=== PATIENT | female | born 1990 | race Caucasian/White ===

== ENCOUNTER 2024-06-18 10:21 | Emergency (ER) | payer BC, SELFPAY ==
[2024-06-18 10:44] VITALS: BP 124/85; PULSE 76; RESP 18; TEMP 37.1; O2SAT 100
--- NOTE | 2024-06-18 10:50 | ED.EYEPROB ---
HPI - Eye Problem General Chief complaint: Eye Problems Stated complaint: spot above right eye Time Seen by Provider: 06/18/24 11:13 Source: patient Mode of arrival: ambulatory Limitations: no limitations History of Present Illness HPI Narrative: 34-year-old female presented for complaint of a red swollen area over the right inner eye. Says it started as a pimple about 8 weeks ago, but has continued to increase in size and reports pain. Denies drainage. Says she does not apply anything or attempt to pop it. Says the swelling is now under the eye. Denies vision changes, eye pain, foreign body sensation, discharge or headache. chief complaint: eye pain Review of Systems Review of Systems: CONSTITUTIONAL: Denies body aches, fever, chills EYES:Endorses swelling, redness and pain to medial upper eye; Denies visual changes, FB sensation, photophobia ENT: Denies rhinorrhea, congestion, sore throat, or otalgia. CARDIOVASCULAR: Denies chest pain, palpitations RESPIRATORY: Denies cough or dyspnea. MUSCULOSKELETAL: Denies back pain, joint pain, or myalgia. NEUROLOGIC: Denies headache, numbness, tingling, or weakness. All systems reviewed & are unremarkable except as noted in HPI and below PMFSH Comments At time of signature, I have reviewed and agree with nursing past medical, surgical, social and family history unless otherwise noted. Please see nursing chart for further information. There is no relevant family history pertinent to the presenting complaint Exam Narrative: GENERAL: Well-appearing HEAD: Normocephalic, atraumatic. EYES: right upper medial eye with 1cm area of erythema and swelling, tender, no drainage or fluctuance; does not extend towards the eye.Mild lower orbit soft tissue swelling without erythema or tenderness. No conjunctival injection, EOMI. ENT: Mucous membranes pink and moist. No rhinorrhea. TMs normal bilaterally. Throat normal. Uvula midline. CHEST: Clear to auscultation. HEART: Regular rate and rhythm. SKIN: Warm, dry, Normal skin turgor. NEURO: No focal deficits. Alert and oriented x3 PSYCH: Normal affect. HENMT: Face images:  1. area of 1cm abscess/cellulitis 2. mild swelling Course Course Emergency Course: Patient is aware of diagnosis, understands and agrees to treatment plan. Anticipatory guidance given. Patient agrees to follow-up as directed and is aware of reasons to seek care at the emergency department. Portions of this record may have been created with voice recognition software Level of Care: Express Care Visit Vital Signs Vital signs: Vital Signs Temperature 98.8 F 06/18/24 10:44 Pulse Rate 76 06/18/24 10:44 Respiratory Rate 18 06/18/24 10:44 Blood Pressure 124/85 06/18/24 10:44 Pulse Oximetry 100 06/18/24 10:44 Oxygen Delivery Room Air 06/18/24 10:44 Temperature 98.8 F 06/18/24 10:44 Pulse Rate 76 06/18/24 10:44 Respiratory Rate 18 06/18/24 10:44 Blood Pressure 124/85 06/18/24 10:44 Pulse Oximetry 100 06/18/24 10:44 Oxygen Delivery Room Air 06/18/24 10:44 MDM - Eye Problem MDM Narrative Medical decision making narrative: Discussed physical exam findings, mild left medial eye cellulitis, reviewed Rx. Advised supportive measures and signs/symptoms to go to the ER. Pt is appropriate for outpt treatment and f/u. Differential Diagnosis Differential diagnosis: Likely corneal abrasion, conjunctivitis, acute iritis, periorbital cellulitis and other Discharge Plan Discharge Clinical Impression: Cellulitis Patient Disposition: Home, Self-Care Condition: Stable Instructions: Antibiotic Form, Cellulitis (ED) Additional Instructions: Cleanse with warm soapy water Warm compresses at least 4 times a day to the site to help expel drainage. Keep your wound covered while draining Take antibiotic as directed Tylenol and ibuprofen every 8 hours for pain as needed Follow up with your primary care physician Go to the Emergency Department immediately if you develop any of the following symptoms: Fevers, Increased redness, pain, or swelling or any other concerns Patient Language: Divehi Prescriptions: New cephalexin 500 mg capsule 500 mg PO Q6H 7 Days Qty: 28 0RF Follow-up/Referrals: PHYSICIAN,[employer]CR[employer] [Primary Care Provider] - Stand Alone Forms: Work/School Release IP Time of Disposition: 11:21
== END 2024-06-18 11:26 | disposition home or self-care (01) ==
PROVIDERS: Emergency Provider Nurse Practitioner Family
DX: L03.211 Cellulitis of face (principal)
CPT/HCPCS: 99213; G0463